=== PATIENT | female | born 1945 | race Caucasian/White ===

== ENCOUNTER 2019-01-16 10:39 | Emergency (ER) | payer MEDICARE, MEDICAID ==
[~2019-01-16] VITALS: Ht 149.9 cm; Wt 64.5 kg
[~2019-01-16 10:39] MED LIST: ACET-2144 PO; CHOL400T27 PO; CLA10T PO; LACT10SO6 PO; MAGN800O PO; OMEP-84 PO; OSC500T PO; RALO60TA55 PO; TRAM50TA2 PO; TRAZ-91 PO; [UNRECOGNIZED DRUG - CODE] PO
--- NOTE | 2019-01-16 11:00 | NUR ---
[facility]
[2019-01-16 11:48] VITALS: BP 173/79
== END 2019-01-16 11:55 | disposition home or self-care (01) ==
LOC: ER 10:40
DX: T17.828A Food in other parts of respiratory tract causing other injury, initial encounter (principal); Z88.2 Allergy status to sulfonamides; Z79.899 Other long term (current) drug therapy; X58.XXXA Exposure to other specified factors, initial encounter; Y93.89 Activity, other specified; Y92.89 Other specified places as the place of occurrence of the external cause; Y99.8 Other external cause status
CPT/HCPCS: 71045; 99283